=== PATIENT | female | born 1960 | race Caucasian/White ===

== ENCOUNTER → 2016-03-12 | Outpatient (CLI) | payer BC | LOC: COL.VAS 12:00 | DX: Z01.818 Encounter for other preprocedural examination (principal); Z86.718 Personal history of other venous thrombosis and embolism ==

== ENCOUNTER → 2016-11-16 | Outpatient (CLI) | payer BC | LOC: MC.RAD 11:20 | DX: Z12.31 Encounter for screening mammogram for malignant neoplasm of breast (principal); Z98.82 Breast implant status ==

== ENCOUNTER → 2017-12-02 | Outpatient (CLI) | payer BC | LOC: MC.RAD 09:40 | DX: Z12.31 Encounter for screening mammogram for malignant neoplasm of breast (principal); Z98.82 Breast implant status ==

== ENCOUNTER → 2019-03-10 | Outpatient (CLI) | payer BC | LOC: MC.RAD 16:28 | DX: Z12.31 Encounter for screening mammogram for malignant neoplasm of breast (principal); T85.49XA Other mechanical complication of breast prosthesis and implant, initial encounter ==

== ENCOUNTER → 2021-06-12 | Outpatient (CLI) | payer OTHER | LOC: MC.RAD 10:08 | DX: Z12.31 Encounter for screening mammogram for malignant neoplasm of breast (principal) ==

== ENCOUNTER → 2023-09-18 | Outpatient (CLI) | payer OTHER ==
[~2023-09-18] MED LIST: Iohexol 300 - 10 ML VIAL IV ONE; Triamcinolone 40 MG/ML 1 ML VIAL IJ ONE
== END ==
LOC: COL.RAD 09:28
DX: M25.571 Pain in right ankle and joints of right foot (principal)
CPT/HCPCS: J0665; J3301; Q9967